=== PATIENT | female | born 1965 | race Caucasian/White ===

== ENCOUNTER → 2016-12-29 | Outpatient (CLI) | payer MEDICAID | END | disposition short-term general hospital (02) | LOC: CLPAIN 08:45 | DX: M47.26 Other spondylosis with radiculopathy, lumbar region (principal); G89.4 Chronic pain syndrome; Z79.891 Long term (current) use of opiate analgesic ==

== ENCOUNTER → 2017-02-02 | Outpatient (CLI) | payer MEDICAID | END | disposition short-term general hospital (02) | LOC: CLPAIN 08:45 | DX: M47.26 Other spondylosis with radiculopathy, lumbar region (principal); G89.4 Chronic pain syndrome; Z79.891 Long term (current) use of opiate analgesic ==

== ENCOUNTER 2017-02-16 12:46 | Day surgery (SDC) | payer MEDICAID | END 2017-02-16 14:20 | disposition short-term general hospital (02) | LOC: SURGOP 12:46 | DX: M47.816 Spondylosis without myelopathy or radiculopathy, lumbar region (principal) | CPT/HCPCS: J1040 ==

== ENCOUNTER → 2017-03-02 | Outpatient (CLI) | payer MEDICAID | END | disposition short-term general hospital (02) | LOC: CLPAIN 11:37 | DX: M47.26 Other spondylosis with radiculopathy, lumbar region (principal); G89.4 Chronic pain syndrome; Z79.891 Long term (current) use of opiate analgesic ==